=== PATIENT | male | born 1970 | race Caucasian/White ===

== ENCOUNTER 2018-04-06 17:44 | Emergency (ER) | payer BC, OTHER ==
[2018-04-06] MEDS ORDERED: Ketorolac Tromethamine 60 MG/2 ML VIAL ONE (18:46)
== END 2018-04-06 19:19 | disposition home or self-care (01) ==
LOC: SCSER 17:44
DX: M54.2 Cervicalgia (principal); V59.9XXA Occupant (driver) (passenger) of pick-up truck or van injured in unspecified traffic accident, initial encounter
CPT/HCPCS: 96372; J1885